=== PATIENT | male | born 1955 | race Caucasian/White ===

== ENCOUNTER 2024-01-13 20:25 | Emergency (ER) | payer BC, MEDICARE, OTHER ==
[2024-01-13 20:38] VITALS: PULSE 96
[2024-01-13 20:58] VITALS: BP 114/80
[2024-01-13] MEDS: Bacitracin Oint 1 GM U/D Packet TOP ONE (21:23)
== END 2024-01-13 21:35 | disposition home or self-care (01) ==
LOC: JP.ED 20:25
DX: S51.811A Laceration without foreign body of right forearm, initial encounter (principal); E78.00 Pure hypercholesterolemia, unspecified; Z79.899 Other long term (current) drug therapy; W26.8XXA Contact with other sharp object(s), not elsewhere classified, initial encounter
CPT/HCPCS: 99282